=== PATIENT | female | born 1955 | race Two or more races ===

== ENCOUNTER 2021-07-06 06:00 | Day surgery (SDC) | payer OTHER ==
[~2021-07-06 06:00] MED LIST: CRESTOR10 MG PO
[2021-07-06] MEDS ORDERED: CEFADROXIL500 MG PO (11:47)
[2021-07-06] MEDS ORDERED: ULTRACET PO (11:47)
== END 2021-07-06 13:25 | disposition home or self-care (01) ==
LOC: CIR.AMB 06:00
PROVIDERS: ATTEND Orthopaedic Surgery Sports Medicine
DX: M65.331 Trigger finger, right middle finger (principal); E78.5 Hyperlipidemia, unspecified; Z71.6 Tobacco abuse counseling; F17.210 Nicotine dependence, cigarettes, uncomplicated; Z20.822 Contact with and (suspected) exposure to COVID-19